=== PATIENT | male | born 2000 | race Caucasian/White ===

== ENCOUNTER 2024-05-16 11:26 | Emergency (ER) | payer SELFPAY ==
[2024-05-16 11:28] VITALS: BP 132/80; PULSE 88; RESP 18; TEMP 36.4; O2SAT 98
--- NOTE | 2024-05-16 12:30 | DI.RAD_ITS ---
Exam(s) XR THORACIC SPINE COMPLETE EXAM: XR THORACIC SPINE COMPLETE CLINICAL HISTORY: pop at work lower T spine. TECHNIQUE: 2D digital imaging was performed. COMPARISON: No exams were available for comparison FINDINGS: Two views. No evidence of fracture, listhesis, nor obvious disc space narrowing. No abnormal widening of the pa raspinal lines. Mild scoliosis convex right. Possibly positional. No osseous lesions. Bone densit y normal. IMPRESSION: No significant acute osseous findings in the thoracic spinal column. DATA REPOSITORY: RADIATION DOSE DELIVERED:
--- NOTE | 2024-05-16 12:39 | ED.GENADUL_ITS ---
Discharge Plan Disposition Patient Disposition: Home Condition: Good Discharge Details Clinical Impression: Back pain Primary Care Provider: Unknown,Unknown ED Provider: Imani Alvarado Home Meds and New Rx's Prescriptions: No Action No Known Home Meds Discharge Instructions Instructions: Upper Back Pain ED Additional Instructions: Imaging and exam are reassuring here today. The sensation you are feeling is probably associated with heavy lifting and having poor form. Please try to make sure you are lifting correctly. Please continue with Tylenol and ibuprofen as needed for discomfort. Please take as directed on the packaging. Please encourage hydration, gentle stretching. If you develop weakness, numbness, increased pain, changes bowel bladder habits or other new/worsening symptoms please seek care urgently once again. Referral for physical therapy is attached, please Call to schedule follow-up appointment. It has been quite awhile since you have seen primary care and will need a new one, care management will set this up and will arrange for appointment in the next 2 weeks. Stand Alone Forms: Physical Therapy Referral, Work Release HPI General Date/Time Provider Initiated Documentation: 05/16/24 12:29 . Limitations to Documentation: no limitations . Information obtained by: patient and RN notes reviewed . History of Present Illness 23 year old M presents to the emergency department with the chief complaint of Back pain after heavy lifting at work, described as moderate and similar to prior episodes, Quality is described as aching, and is localized to the back. Patient reports no radiation. Patient started experiencing this hour(s) and it has been constant. Immobilization improves symptom(s), Movement worsens symptoms (Particularly twisting and forward flexion) . Patient notes no other symptoms.. Patient did receive the following treatments prior to arrival, NSAID (20 mg ibuprofen) Related Data Home Medications ?Medication ?Instructions ?Recorded ?Confirmed Unknown [No Known Home Meds] 05/16/24 05/16/24 Allergies Allergy/AdvReac Type Severity Reaction Status Date / Time No Known Allergies Allergy Unverified 05/16/24 11:35 General Stated Complaint: Nk/Back Pain SYLVIE: 4 Review of Systems Constitutional Constitutional: Reports as per HPI, Denies chills, Denies fatigue, Denies fever(s), Denies frequent falls and Denies headache(s) Eyes Eyes: Denies change in vision ENT Ears, Nose, Mouth, and Throat: Denies headache(s) Cardiovascular Cardiovascular: Denies chest pain, Denies dyspnea and Denies dyspnea on exertion Respiratory Respiratory: Denies cough, Denies dyspnea and Denies dyspnea on exertion Gastrointestinal Gastrointestinal: Denies abdominal pain, Denies change in bowel habits and Denies fecal incontinence Genitourinary Genitourinary: Reports as per HPI, Denies urinary hesitancy and Denies urinary incontinence Musculoskeletal Musculoskeletal: Reports as per HPI, Reports back pain, Denies muscle weakness, Denies numbness, Denies radiating pain into limb, Reports stiffness and Denies tingling Integumentary/Breasts Skin/Breast: Reports as per HPI and Denies rash Neurologic Neurologic: Reports as per HPI, Denies frequent falls, Denies headache(s), Denies localized weakness, Denies numbness, Denies radicular pain, Denies sensory deficit, Denies tingling and Denies paresthesias Endocrine Endocrine: Denies fatigue Exam Const General: cooperative, healthy appearing, comfortable, no acute distress, well developed and well groomed Nutritional Appearance: average body habitus and well nourished Orientation: alert and awake Resp Effort & Inspection: normal respiratory effort and able to speak in complete sentences Auscultation: clear to auscultation bilaterally, no rales, no rhonchi and no wheezes Cardio Rate: regular rate Rhythm: regular rhythm Heart Sounds: S1 normal and S2 normal Back/Spine/Pelvis Back: no CVA tenderness Cervical Spine: normal cervical lordosis Thoracic/Lumbar Spine: thoracic and lumbar spine normal to inspection, thoraco- lumbar ROM normal, No paraspinal tenderness, No thoraco-lumbar spasm, thoracic spinal tenderness, No lumbar spinal tenderness and No straight leg raise positive Skin General skin exam: no rashes or lesions noted Neuro General: patient alert and patient awake Cognition: normal cognition Speech: speech normal Gait: normal gait Motor: muscle tone normal throughout, strength 5/5 throughout, no movement abnormalities noted and no fasciculations Sensory Exam: no sensory deficits noted (no saddle paresthesias) DTR's: Rt Patellar: 2+ and Lt Patellar: 2+ Extrem General: normal to inspection, full ROM, capillary refill normal, no joint enlargement, no pedal edema, no calf tenderness and normal gait Course Vital Signs Vital signs: Vital Signs Temperature 36.4 C L 05/16/24 11:28 Pulse 88 05/16/24 11:28 Respiratory Rate 18 05/16/24 11:28 Blood Pressure 132/80 05/16/24 11:28 Pulse Oximetry 98 05/16/24 11:28 Temperature 36.4 C L 05/16/24 11:28 Temperature Source Temporal Artery Scan 05/16/24 11:28 Pulse 88 05/16/24 11:28 Respiratory Rate 18 05/16/24 11:28 Respiratory Effort Normal, Non-Labored 05/16/24 11:36 Blood Pressure 132/80 05/16/24 11:28 Blood Pressure Position Sitting 05/16/24 11:28 Pulse Oximetry 98 05/16/24 11:28 Oxygen Delivery Method Room Air 05/16/24 11:28 Oxygen Flow Rate 0 05/16/24 11:28 Pain Level 6 05/16/24 11:28 Medical Decision Making Patient is a pleasant 23-year-old male presenting today with chief complaint of mid back pain. He reports that initially began a few weeks ago when he was lifting something heavy at work and felt a pop. States that this returned once again today when he was lifting a wheelbarrow at work and felt a pop once again. He reports that he was initially seen in outpatient hospital who recommended that if his pain persist he may require an MRI and encouraged follow-up with his primary care. Patient has not yet followed up with primary care continues to the doctors but not what office they work with to contact for follow-up appointment. He denies any numbness or tingling. No change in bowel or bladder habits. No substantial injury, no fall or actual trauma. Denies any weakness, numbness. On exam, patient appears nontoxic. He is resting comfortably no acute distress. He is hemodynamically stable. He has no midline tenderness elicited with palpation but he does have pain induced with rotation, particular to the right. No pain with extension but he does have pain with forward flexion. He has no saddle paresthesias. 5 out of 5 strength equal bilaterally in lower extremities. Not see any indication at this time of neurological deficit. Will repeat x-ray to evaluate for any change or worsening of any type of underlying issue. I did encourage some stretching, strengthening and further evaluation of his lifting patterns while at work. Advised that he will need follow-up with primary care FINDINGS: Two views. No evidence of fracture, listhesis, nor obvious disc space narrowing. No abnormal widening of the paraspinal lines. Mild scoliosis convex right. Possibly positional. No osseous lesions. Bone density normal. IMPRESSION: No significant acute osseous findings in the thoracic spinal column. Discussed these findings with the patient. Encourage hydration. Discussed supportive care. Again, no evidence to suggest neurologic compromise and highly unlikely to have any fracture or significant injury based on mechanism. Have asked our care management team to assist in establishing primary care. Will refer to physical therapy as well to help with his recurrent back pain. Believe that some of this is associated with his inappropriate lifting when at work and I encouraged appropriate lifting technique. While the patient does seem to be aware of the appropriate technique, does not like this is something that is difficult to do for him in the heat of the moment that he is moving quickly. We discussed stretching, strengthening. All of his questions and concerns were addressed and he is in agreement this plan. This documentation was generated using [employer] dictation system, please disregard any oddities of phrase or misspellings. Quality:SDOH Health Related Social Needs: No Data to Display PFSH All Active Problems (Updated 05/16/24 @ 14:02 by ALEXANDRA Woods) Back pain (Acute) Social History Smoking/Tobacco Use Status: Current every day Tobacco Type: e-cigarettes Smoking risk assessment performed?: Yes Alcohol Intake: current Alcohol Intake frequency: holidays/special occasions only Housing: house
[2024-05-16] MEDS: Ibuprofen 400 MG TAB PO (12:50)
[2024-05-16] MEDS: Acetaminophen 500 MG TAB 1000 MG PO (12:50)
[2024-05-16 13:22] VITALS: BP 125/74; PULSE 68
== END 2024-05-16 14:10 | disposition home or self-care (01) ==
PROVIDERS: Emergency Provider Physician Assistant
DX: M54.6 Pain in thoracic spine (principal); F17.210 Nicotine dependence, cigarettes, uncomplicated
CPT/HCPCS: 99283; 72072